=== PATIENT | female | born 1995 | race Caucasian/White ===

== ENCOUNTER 2017-12-17 09:53 | Day surgery (SDC) | payer MEDICAID, SELFPAY ==
[2017-12-17 10:15] VITALS: BP 117/64; PULSE 84; RESP 16; TEMP 36.8; O2SAT 98; BMI 27.4
--- NOTE | 2017-12-17 11:30 | POC_PTH ---
PATIENT: TAYLER CHO [place] [facility] [id number] AGE/SX: 22/F ROOM: RE12/17/[address]: Dr. Noé Roberts MD : 1995 BED: DIS: 12/17/2017 SPEC #: [id number] RECD: 12/17/17 15:40 STATUS: HUI PINKY #: [id number] KEYA: 12/17/17 11:[address]: Noé Roberts DEPT: SURGICAL PATHOLOGY RECD BY: Alisha Woodson ENTERED: 12/18/17 09:45 SP TYPE: PROD CONC OTHR DR: No Primary Care Phys Tissues: Product of conception, NOS Procedures: Surgery Specimen Level IV HEADER OPERATION: Dilation and curettage, suction PRE-OP DIAGNOSIS: Intrauterine demise TISSUE SUBMITTED: Products of conception MICROSCOPIC DIAGNOSIS Products of conception: Decidua and immature chorionic villi (products of conception). SJ:arlette 3/5/18 MICROSCOPIC DESCRIPTION Slides are reviewed. GROSS DESCRIPTION Received in fixative is one container labeled with the patient's name and designated products of conception. The specimen consists of multiple fragments of pink hemorrhagic soft tissue that in aggregate measure 8 x 7 x 3 cm. No tissue is identified. Wire Photo Operator News tissue is submitted in two cassettes. / SJ:arlette 12/18/17 TC:5 CPT: 93303
--- NOTE | 2017-12-17 12:25 | PCM.DC.D&C ---
Discharge Diet: No Restrictions Discharge Activity: Return to Normal Activity - after 24 hours, May Shower May resume sexual activity in: 2 weeks Weight Bearing Status: Weight bearing as tolerated Call your doctor if you observe: Fever of 101 or Higher, Coldness, Increased Pain, Numbness or Tingling, Change in Color, Inability to urinate, Inability to have a bowel movement, Using more than one pad per hour, Shortness of breath, Fainting spells, Chest pain, Prolonged hiccoughing, Calf discomfort Allergies/Adverse Reactions: Allergies Penicillins Allergy (Verified 12/16/17 13:46) Rash rash n/v Medications to take at Discharge vitamin,calcium,duqmozdz-pvnf-rrgnf acid tablet 1 tab PO QDAY 11/30/17 Primary Care Physician: Care Physician,No Primary [Primary Care Provider] -
--- NOTE | 2017-12-17 12:29 | PCM.OPRPT ---
Report of Operation Date of Procedure: 12/17/17 Pre-Operative Diagnosis: Missed at 9 weeks Post-Operative Diagnosis: Same Surgery/Procedure Performed:: Suction D&C Description of Surgical Findings:: 9 week size uterus Type of Anesthesia:: MAC Specimen's removed: POC's Estimated Blood Loss (mL): 50ml Fluids Replaced: 1,000ml Description of Procedure: Patient taken to OR where MAC anesthesia placed. Patient put in dorsal lithotomy position. She was prepped & draped. Cervix grasped with single toothed tenaculum and gently dilated. #9 suction curette introduced for return of POC's. #2 sharp curette used gently. Repeat suction curettage performed. TAUS showed additional POC's. Repeat sharp & suction curettage performed. Repeat TAUS performed. At end of procedure all instruments removed from vaginal cavity. Patient tolerated procedure well. - Complications None
[2017-12-17 13:11] VITALS: BP 111/86; BP 117/64; PULSE 86; RESP 18; TEMP 36.6; O2SAT 96
[2017-12-17 13:15] VITALS: BP 114/99; BP 117/64; PULSE 87; RESP 16
[2017-12-17 13:20] VITALS: BP 101/61; BP 117/64; PULSE 75; RESP 18; O2SAT 100
[2017-12-17 13:25] VITALS: BP 101/61; BP 117/64; PULSE 74; RESP 18; TEMP 36.6; O2SAT 100
[2017-12-17] MEDS: Doxycycline 100 MG CAPSULE 200 MG PO (13:55)
[2017-12-17 14:15] VITALS: BP 117/64
== END 2017-12-17 14:23 | disposition home or self-care (01) ==
LOC: SDC 09:54 → AC 09:55
PROVIDERS: Visit Provider Obstetrics & Gynecology
PROC: (CPT 59820; principal; 2017-12-17 11:15)
DX: O02.1 Missed abortion (principal); Z87.891 Personal history of nicotine dependence
CPT/HCPCS: 59820; 88305; J7120

== ENCOUNTER 2019-04-05 15:26 | Outpatient (RCR) | payer MEDICAID, SELFPAY | END 2019-04-05 23:59 | disposition home or self-care (01) | LOC: DC 15:26 | PROVIDERS: Visit Provider Obstetrics & Gynecology | DX: O24.419 Gestational diabetes mellitus in pregnancy, unspecified control (principal) | CPT/HCPCS: 97802 ==

== ENCOUNTER 2019-05-24 17:25 | Outpatient (CLI) | payer MEDICAID, SELFPAY ==
[2019-05-24 18:20] VITALS: BMI 36.2
[2019-05-24 18:58] LABS: AST(SGOT) 15 U/L (15-37); Alanine Aminotransfer ALT/SGPT 12 U/L (13-56); Albumin, Serum 2.6 g/dL (3.2-5.0); Alkaline Phosphatase 163 U/L (45-117); Bilirubin, Direct 0.08 mg/dL (0.00-0.30); Globulin 4.5 g/dL (2.2-4.2); Protein, Total 7.1 g/dL (6.4-8.2)
--- NOTE | 2019-05-27 07:54 | OB.TRI.NOTE ---
History of Present Illness Reason For Visit: ITCHING Date of Service: 05/24/19 Final ALEXANDR: 06/03/19 Final ALEXANDR Source: US <20 weeks Gestational age: 39 Weeks and 0 Days Allergies Penicillins Allergy (Verified 05/27/19 05:29) Rash rash n/v as a child - Pertinent Past Medical History Medical History: Past Medical History (Last Updated 11/30/17 @ 15:02 by Caro Watters) Surgical History: Past Surgical History (Last Updated 11/30/17 @ 15:02 by Caro Watters) Hx of section Laboratory Studies: Laboratory Tests 05/24/19 Range/Units 18:05 Total Bilirubin 0.30 (0.20-1.00) mg/dL Direct Bilirubin 0.08 (0.00-0.30) mg/dL AST 15 (15-37) U/L ALT 12 L (13-56) U/L Alkaline Phosphatase 163 H (45-117) U/L Total Protein 7.1 (6.4-8.2) g/dL Albumin 2.6 L (3.2-5.0) g/dL Globulin 4.5 H (2.2-4.2) g/dL Impression/Plan NST for itching in Evaluation done by Debi Day CNM
== END 2019-05-24 19:30 | disposition home or self-care (01) ==
LOC: WPOUT 17:34 → WP 17:34
PROVIDERS: Referring Provider Obstetrics & Gynecology; Visit Provider Obstetrics & Gynecology
DX: O26.893 Other specified pregnancy related conditions, third trimester (principal); L29.9 Pruritus, unspecified; Z3A.39 39 weeks gestation of pregnancy
CPT/HCPCS: 36415; 59025; 59050; 80076; 99218; G0378

== ENCOUNTER 2019-05-27 04:45 | Inpatient (IN) | payer MEDICAID, SELFPAY ==
--- NOTE | 2019-05-24 23:12 | OB.TRI.PN ---
Progress Notes Date of Service: 05/24/19 Progress Note: Presented to L&D with complaint of itching all over her body. Denies any other complaints. No VB,LOF,or contractions. Was seen in the office today and told she had some itching but once she got home realized she was still itching. O: Heart:RRR Lungs: CTA bilaterally Abd: soft, non tender, no RUQ pain 145, moderate variability, accels, no decels, reactive A:Itching P: 1) No change in symptoms upon presentation. Itching mild and not on hands or soles of feet. 2) LFTs normal 3) Benadryl 25mg PO once. Patient declines because she has to drive home but will take once she arrives 4) To call office tomorrow to update on symptoms 5) consulted and agrees with plan.
[2019-05-27] VITALS (21 sets, daily range): BP systolic 106–126; BP diastolic 47–78; PULSE 65–103; RESP 12–20; TEMP 36.1–36.9; O2SAT 95–100; BMI 35.8
[2019-05-27] MEDS: Lactated Ringers 1,000 ML 999 ML IV (05:21)
[2019-05-27 05:33] LABS: Absolute Lymphocyte Count 3.03 X10^3/uL (0.83-4.51); Absolute Neutrophil Count 5.2 X10^3/uL (2.0-7.7); Basophil# 0.02 X10^3/uL; Basophil% 0.2 % (0-1); Eosinophil# 0.11 X10^3/uL; Eosinophils% 1.2 % (0-5); Hematocrit 35.1 % (37-47); Hemoglobin 11.6 g/dL (12.0-15.0); Lymphocyte # 3.03 X10^3/ul (4.0); Lymphocyte % 33.1 % (19-41); Mean Corpuscular Hgb 29.4 pg (27.0-32.0); Mean Corpuscular Volume 88.9 fL (81-99); Mean Platelet Vol. 11.8 fl (6.2-12.0); Monocyte# 0.76 X10^3/uL; Monocyte% 8.3 % (0-10); NRBC Flagged by Analyzer 0 % (0-5); Neutrophil # 5.17 X10^3/uL (2.7-7.7); Neutrophil % 56.5 % (47-70); Platelet Count 192 K/mm3 (150-450); RBC Distribution Width CV 13.1 % (11.6-14.6); RBC Distribution Width SD 42.4 fl (35.1-43.9); Red Blood Count 3.95 M/mm3 (4.2-5.4); White Blood Count 9.2 K/mm3 (4.4-11.0)
[2019-05-27] MEDS: Lactated Ringers 1,000 ML 150 ML IV (06:20)
[2019-05-27 07:08] LABS: Chlamydia Trachomatis by PCR Negative (Negative); Neisserai gonorrhoeae by PCR Negative (Negative); Probe Check PASS; Sample Adequacy Control PASS; Specimen Processing Control PASS
--- NOTE | 2019-05-27 08:15 | OP.PCM_ITS ---
Report of Operation Date of Procedure: 05/27/19 Pre-Operative Diagnosis: (1) Prior section (2) 39 weeks Post-Operative Diagnosis: Same Description of Surgical Findings:: Normal uterus & adnexa. Some scar tissue of the fascia and bladder near the VERONIKA. operations developer: Coar Willis Type of Anesthesia:: Spinal - Admit VTE Documentation VTE Present on Admission: No VTE Mechan Device Prophylaxis: SCD's Delivery Classification: Scheduled Final ALEXANDR: 06/03/19 Gestational age: 39 Weeks and 0 Days Indications for : Repeat Elective Description of Procedure: Patient taken to OR where spinal anesthesia was placed. She was prepped and draped in normal sterile fashion in a dorsal supine position with a leftward tilt. After ensuring adequacy of anesthesia the Pfannensteil skin incision was made and carried through to the underlying fascia with a bovie. The fascia was incised in the midline and carried laterally with the Squires scissors. The rectus muscles were in the midline and the peritoneum was entered bluntly. The bladder flap was dissected down carefully with the Metzenbaum scissors and blunt dissection. The uterus was incised in a transverse fashion and then incision extended with cephalocaudad traction. The fetus was vertex and the head was brought to the incision in the flexed position. With good fundal pressure the head easily delivered. The head was gently guided to allow delivery of anterior & posterior shoulders. No excess traction placed on head. The body delivered easily. The 3VC cord was clamped and cut after 1 minute delay and the infant handed off to the waiting RN. The placenta was delivered with gentle traction and fundal massage and the uterus was exteriorized and cleared of all clots and debris. The uterine incision was closed with 2 of 1 vicryl suture in a running locked fashion that were overlapped in the midline of the incision. The bovie was used to further obtain further hemostasis of the uterine incision. 2 figure of 8 sutures were used to help obtain excellent hemostasis. The bladder was back filled with 300ml methylene blue dyed normal saline. This confirmed bladder integrity and was done because of the scar tissue involving the bladder to the lower uterine segment. The uterus was returned to the peritoneal cavity. The pelvis was irrigated & then cleared of all clots and debris. The uterine incision was reexamined and found to be hemostatic. Some christopher was placed over the uterine incision due to the denuded areas. The fascia was closed with looped PDS suture in a running standard fashion. The subcutaneous tissue was examined & any bleeding bovie cauterized. The subcutaneous tissue was reapproximated with plain gut suture. The skin was closed in a subcuticular fashion by the BLOOD BANK LABORATORY PROFESSIONAL with me present in the labor and delivery suite. I performed the remainder of the procedure with assistance. Amniotic Membrane Rupture Type: Artificial Amniotic Fluid Description: Clear Placenta Disposition: [facility] Specimen(s) sent to pathology: None Drain: Alford to straight drain Fluids Replaced: 1500ml Cord Entanglement: None Cord Vessel Description: 3 Vessels Esitmated Blood Loss (ml): 800ml Infant Gender: Female - Brittani (1 minute): 8 (5 minute): 9 Delayed cord clamping: Yes Pre-op Antibiotic Given: Ancef 2 grams IV x1 Complications: None - Admit VTE Documentation VTE Present on Admission: No VTE Mechan Device Prophylaxis: SCD's
[2019-05-27] MEDS: Sodium Citrate/Citric Acid 30 ML UDC PO (08:20)
[2019-05-27] MEDS: Cefazolin 2 GM in 0.9% Normal Saline 100 ML IV (08:20)
--- NOTE | 2019-05-27 08:25 | PCM.HP.OB ---
History Date of Admission: 02/16/15 Final ALEXANDR: 06/03/19 Final ALEXANDR Source: US <20 weeks Gestational age: 39 Weeks and 0 Days History of this : This is a 24 year-old, G [], P [], at 39 weeks gestational age. Medical History: Medical History (Last Updated 11/30/17 @ 15:02 by Caro Watters) Z34.90 Surgical History: Surgical History (Last Updated 11/30/17 @ 15:02 by Caro Watters) Hx of section Z98.891 Allergies Penicillins Allergy (Verified 05/27/19 05:29) Rash rash n/v as a child Smoking Status: Former smoker History Past Pregnancies: Past Pregnancies Delivery Date Name GA/Weeks Outcome Route Weight Infant Gender Labor Length Anesthesia Delivery Location Provider FOB Assessment/Plan All Active Problems (Last Updated 11/30/17 @ 15:02 by Caro Watters) URI (upper respiratory infection) (Acute) This is a 24 year-old, G [], P [], at 39 weeks gestational age. Admit for repeat Please see CF H&P - no updates
[2019-05-27] MEDS: Ketorolac 30 MG/ML Syringe IV ×3 (09:46→21:55)
[2019-05-27] MEDS: Lactated Ringers 1,000 ML 100 ML IV ×2 (10:10→16:22)
[2019-05-27] MEDS: Oxytocin 30 units/NS 500 ml 30 UNITS/500 ML IV.SOLN 167 UNITS IV (10:57)
[2019-05-27] MEDS: 0.9% Saline Lock 10 ML Syringe IV (16:23)
[2019-05-28] VITALS (9 sets, daily range): BP systolic 104–124; BP diastolic 71–78; PULSE 78–110; RESP 16–18; TEMP 36.3–36.6; O2SAT 95–100
--- NOTE | 2019-05-28 01:20 | NURSING ---
pt calls rn to room. She states the baby was spitting up and FOB moved crib really fast and snagged the ly bag on the crib and riipped a hole in it. ly removed. mother with great urine output. about 400 on floor and 100 in the bag.
[2019-05-28] MEDS: 0.9% Saline Lock 10 ML Syringe IV ×4 (04:20→22:42)
[2019-05-28] MEDS: Ketorolac 30 MG/ML Syringe IV ×4 (04:20→22:42)
[2019-05-28 06:12] LABS: Hematocrit 33.4 % (37-47); Mean Corp Hgb Conc 32.9 g/dL (32-36); Mean Corpuscular Hgb 29.6 pg (27.0-32.0); Mean Corpuscular Volume 89.8 fL (81-99); Mean Platelet Vol. 11.6 fl (6.2-12.0); Platelet Count 170 K/mm3 (150-450); RBC Distribution Width CV 13.2 % (11.6-14.6); RBC Distribution Width SD 42.8 fl (35.1-43.9); Red Blood Count 3.72 M/mm3 (4.2-5.4); White Blood Count 19.9 K/mm3 (4.4-11.0)
--- NOTE | 2019-05-28 12:10 | PCM.PN.OB ---
Subjective: Doing well per patient and nursing staff. Ambulating and taking PO. Alford out and voiding. Passing flatus. without difficulty. Denies any shortness of breath, shortness of breath, or leg pain. Pain controlled. - Physical Exam General: Alert, Cooperative HEENT: Atraumatic, Normocephalic Neck: Trachea Midline Lungs: Clear to auscultation, Normal air movement, No rhonchi, No wheeze Cardiovascular: Regular rate, Regular Rhythm, No murmurs Abdomen: Bowel Sounds Present, Soft Extremities: No edema - Yanique's negative bilaterally Psych/Mental Status: Normal Affect, Appropriate Vital Signs Temp Pulse Resp BP Pulse Ox 97.8 F 90 18 113/71 97 05/28/19 08:00 05/28/19 08:00 05/28/19 08:00 05/28/19 08:00 05/28/19 08:00 Oxygen Delivery Method Room Air Weight: 195 lb 15.855 oz Body Mass Index (BMI) 35.8 Intake and Output for Last 24 Hours 05/26/19 05/27/19 05/28/19 23:59 23:59 23:59 Intake Total 3943 / 3943 1000 / 1000 Output Total 1550 / 1550 1100 / 1100 Balance 2393 / 2393 -100 / -100 Laboratory Tests Past 24 Hrs 05/28/19 05:50 WBC 19.9 H RBC 3.72 L Hgb 11.0 L Hct 33.4 L MCV 89.8 MCH 29.6 MCHC 32.9 RDW Std Deviation 42.8 RDW Coeff of Yevgeniy 13.2 Plt Count 170 MPV 11.6 Medical Necessity - Tobacco Use Smoking Status: Former smoker Assessment/Plan All Active Problems (Last Updated 11/30/17 @ 15:02 by Caro Watters) URI (upper respiratory infection) (Acute) A:POD #1 Repeat Section P: 1) Routine post op care. 2) Hgb/Hct stable. WBC increased to 19,000, afebrile and no signs of infection at this time. Repeat in am. 3) Pain management 4) Planning D/C home tomorrow
[2019-05-29 02:30] VITALS: BP 112/70; PULSE 70; RESP 16; TEMP 36.6; O2SAT 96
[2019-05-29] MEDS: 0.9% Saline Lock 10 ML Syringe IV (04:25)
[2019-05-29] MEDS: Ketorolac 30 MG/ML Syringe IV (04:25)
[2019-05-29 07:26] LABS: Absolute Lymphocyte Count 2.63 X10^3/uL (0.83-4.51); Absolute Neutrophil Count 10.6 X10^3/uL (2.0-7.7); Basophil# 0.03 X10^3/uL; Basophil% 0.2 % (0-1); Eosinophil# 0.19 X10^3/uL; Eosinophils% 1.3 % (0-5); Hematocrit 32.6 % (37-47); Hemoglobin 10.6 g/dL (12.0-15.0); Lymphocyte # 2.63 X10^3/ul (4.0); Lymphocyte % 18.1 % (19-41); Mean Corp Hgb Conc 32.5 g/dL (32-36); Mean Corpuscular Hgb 29.4 pg (27.0-32.0); Mean Corpuscular Volume 90.3 fL (81-99); Mean Platelet Vol. 11.4 fl (6.2-12.0); Monocyte# 1.03 X10^3/uL; Monocyte% 7.1 % (0-10); NRBC Flagged by Analyzer 0 % (0-5); Neutrophil # 10.59 X10^3/uL (2.7-7.7); Neutrophil % 72.8 % (47-70); Platelet Count 191 K/mm3 (150-450); RBC Distribution Width CV 13.6 % (11.6-14.6); RBC Distribution Width SD 44.8 fl (35.1-43.9); Red Blood Count 3.61 M/mm3 (4.2-5.4); White Blood Count 14.5 K/mm3 (4.4-11.0)
--- NOTE | 2019-05-29 10:17 | DCINST_ITS ---
Discharge Diet: No Restrictions Discharge Activity: Return to Normal Activity, May not drive while taking narcotic pain medications., May Shower May resume sexual activity in: 4-6 weeks Lifting Restrictions: 20 pounds Additional Activity Instructions:: Nothing in the vagina for 4-6 weeks. You may return to work/school in 6 weeks. Call your doctor if your incision/area has: Continuous Slow Oozing, Sudden Increased Bleeding, Increased Pain/ Swelling, Increased Redness, Foul Smelling Discharge Call your doctor if you observe: Fever of 101 or Higher, Inability to urinate, Inability to have a bowel movement, Using more than one pad per hour, Chest pain, Increased palpitations (irregular heartbeat), Calf discomfort, Uncontrolled pain Suture Line Care: Avoid Pulling/Pushing, Avoid Pinching/Bending Cleanse incision/area with: Keep Dressing Clean & Dry - remove dressing after 7 days Instructions: After a Additional Instructions: If you experience any of the following, contact your healthcare provider. * Bleeding that soaks a pad every hour for 2 hours * Fever 100.4 or higher * Unrelieved incision or abdominal pain * Swelling, redness, discharge or bleeding from your incision or episiotomy site * Your incision begins to separate * Problems urinating (including inability to urinate or burning while urinating). * Visual changes * Severe headache * Flu-like symptoms * Pain or redness in one of both of your breasts * Pain, warmth, tenderness or swelling in your legs, especially the calf area * Frequent nausea and vomiting * Symptoms of depression or anxiety If you experience any of the following, call 911 or go to the nearest Emergency Room. * Chest pain * Problems breathing * Seizure activity * Partial or complete paralysis of a body part, slurred speech, weakness or drooping of the face, or a sudden inability to walk or hold your balance Allergies/Adverse Reactions: Allergies Penicillins Allergy (Verified 05/27/19 05:29) Rash rash n/v as a child Medications to take at Discharge Oxycodone HCl/Acetaminophen [Percocet 5/325] 1 - 2 tab PO Q4H PRN PRN 7 Days #20 tab 05/29/19 The following prescriptions were given: Oxycodone HCl/Acetaminophen [Percocet 5/325] 1 - 2 tab PO Q4H PRN PRN 7 Days #20 tab PRN Reason: Pain Prescription Printed Follow-Up: Call to make an appointment with your doctor for an incision check in 1-2 weeks. You will also need a 6 week post- follow up appointment. Test results from this visit will be discussed in further detail at your follow- up appointment, if applicable. Please Follow Up With: Barb Dugan MD Primary Care Physician: Care Physician,No Primary [Primary Care Provider] -
--- NOTE | 2019-05-29 10:17 | PCM.PN.OB ---
Subjective: Doing well per patient and nursing staff. Ambulating and taking PO without difficulty. Voiding and passing flatus. Wearing abdominal support binder. Pain controlled. Lochia normal. without difficulty. Planning D/C home today. - Physical Exam General: Alert, Oriented x3, Cooperative HEENT: Atraumatic, Normocephalic Neck: Trachea Midline Lungs: Clear to auscultation, Normal air movement, No rhonchi, No wheeze Cardiovascular: Regular rate, Regular Rhythm, No murmurs Abdomen: Bowel Sounds Present, Soft Extremities: No edema Psych/Mental Status: Normal Affect, Appropriate Vital Signs Temp Pulse Resp BP Pulse Ox 97.9 F 70 16 112/70 96 05/29/19 02:30 05/29/19 02:30 05/29/19 02:30 05/29/19 02:30 05/29/19 02:30 Oxygen Delivery Method Room Air Weight: 195 lb 15.855 oz Body Mass Index (BMI) 35.8 Intake and Output for Last 24 Hours 05/27/19 05/28/19 05/29/19 23:59 23:59 23:59 Intake Total 3943 / 3943 1000 / 1000 Output Total 1550 / 1550 1100 / 1100 Balance 2393 / 2393 -100 / -100 Laboratory Tests Past 24 Hrs 05/29/19 07:10 WBC 14.5 H RBC 3.61 L Hgb 10.6 L Hct 32.6 L MCV 90.3 MCH 29.4 MCHC 32.5 RDW Std Deviation 44.8 H RDW Coeff of Yevgeniy 13.6 Plt Count 191 MPV 11.4 Immature Gran % (Auto) 0.500 Neut % (Auto) 72.8 H Lymph % (Auto) 18.1 L Letcher % (Auto) 7.1 Eos % (Auto) 1.3 Baso % (Auto) 0.2 Absolute Neuts (auto) 10.6 H Absolute Lymphs (auto) 2.63 Nucleated RBC % 0 Medical Necessity - Tobacco Use Smoking Status: Former smoker Assessment/Plan All Active Problems (Last Updated 11/30/17 @ 15:02 by Caro Watters) URI (upper respiratory infection) (Acute) A:POD #2 s/p repeat section P: 1) Routine discharge instructions for post op care given. 2) Remove dressing after 7 days 3) Rx for Percocet PRN for pain 4) Follow up in 2 weeks and 6 weeks
--- NOTE | 2019-05-29 10:20 | PCM.DC.SUM ---
Discharge Date and Diagnosis Date of Admission: 02/16/15 Date of Discharge: 05/29/19 - Primary Discharge Diagnosis Repeat Section Hospital Course and Treatment Summary of Care Provided: The patient is a 24 year old F [at 39 weeks presented for repeat section. Uncomplicated hospital course. Discharge home on post op day #2.] - Physical Exam Vital Signs Temp Pulse Resp BP Pulse Ox 97.9 F 70 16 112/70 96 05/29/19 02:30 05/29/19 02:30 05/29/19 02:30 05/29/19 02:30 05/29/19 02:30 Oxygen Delivery Method Room Air Weight: 195 lb 15.855 oz Body Mass Index (BMI) 35.8 Intake and Output for Last 24 Hours 05/27/19 05/28/19 05/29/19 23:59 23:59 23:59 Intake Total 3943 / 3943 1000 / 1000 Output Total 1550 / 1550 1100 / 1100 Balance 2393 / 2393 -100 / -100 Laboratory Tests Past 24 Hrs 05/29/19 07:10 WBC 14.5 H RBC 3.61 L Hgb 10.6 L Hct 32.6 L MCV 90.3 MCH 29.4 MCHC 32.5 RDW Std Deviation 44.8 H RDW Coeff of Yevgeniy 13.6 Plt Count 191 MPV 11.4 Immature Gran % (Auto) 0.500 Neut % (Auto) 72.8 H Lymph % (Auto) 18.1 L [place] % (Auto) 7.1 Eos % (Auto) 1.3 Baso % (Auto) 0.2 Absolute Neuts (auto) 10.6 H Absolute Lymphs (auto) 2.63 Nucleated RBC % 0 Discharge Diet: No Restrictions Discharge Activity: Return to Normal Activity, May not drive while taking narcotic pain medications., May Shower May resume sexual activity in: 4-6 weeks Additional Activity Instructions:: Nothing in the vagina for 4-6 weeks. You may return to work/school in 6 weeks. Call your doctor if your incision/area has: Continuous Slow Oozing, Sudden Increased Bleeding, Increased Pain/ Swelling, Increased Redness, Foul Smelling Discharge Call your doctor if you observe: Fever of 101 or Higher, Inability to urinate, Inability to have a bowel movement, Using more than one pad per hour, Chest pain, Increased palpitations (irregular heartbeat), Calf discomfort, Uncontrolled pain Suture Line Care: Avoid Pulling/Pushing, Avoid Pinching/Bending Cleanse incision/area with: Keep Dressing Clean & Dry - remove dressing after 7 days Home Medications: Medications to take at Discharge Oxycodone HCl/Acetaminophen [Percocet 5/325] 1 - 2 tab PO Q4H PRN PRN 7 Days #20 tab 05/29/19 Following Prescrptions Were Given to Patient: Oxycodone HCl/Acetaminophen [Percocet 5/325] 1 - 2 tab PO Q4H PRN PRN 7 Days #20 tab PRN Reason: Pain Prescription Printed Primary Care Physician: Care Physician,No Primary [Primary Care Provider] - Please Follow Up With: Barb Dugan MD Patient Instructions: After a Medical Necessity - Tobacco Use Smoking Status: Former smoker Meaningful Use Info Meaningful Use Diagnoses (Choose all that apply): None applicable
--- NOTE | 2019-06-02 18:24 | NURSING ---
No answer on follow up phone call and no voicemail
== END 2019-05-29 11:30 | disposition home or self-care (01) | DRG 540 ==
PROVIDERS: Advanced Practice Midwife; Admitting Provider Obstetrics & Gynecology; Referring Provider Obstetrics & Gynecology; Visit Provider Obstetrics & Gynecology
PROC: 10D00Z1 Extraction of Products of Conception, Low, Open Approach (ICD-10-PCS; CPT 59514; principal; 2019-05-27 07:15)
DX: O65.5 Obstructed labor due to abnormality of maternal pelvic organs (principal); O34.211 Maternal care for low transverse scar from previous cesarean delivery; O26.893 Other specified pregnancy related conditions, third trimester; L29.9 Pruritus, unspecified; Z3A.39 39 weeks gestation of pregnancy; Z37.0 Single live birth; Z87.891 Personal history of nicotine dependence
CPT/HCPCS: 36415; 59025; 59050; 80076; 85025; 85027; 86850; 86900; 87491; 87591; 99218; J7120; A4216; G0378; Q9968

== ENCOUNTER 2020-01-14 16:45 | Emergency (ER) | payer MEDICAID, SELFPAY ==
[2019-05-27 05:31] VITALS: BMI 35.8
[2020-01-14 16:46] VITALS: BP 136/92; PULSE 88; RESP 16; TEMP 36.2; O2SAT 98; BMI 30.4
--- NOTE | 2020-01-14 17:16 | RAD_ITS ---
STUDY: X-RAY CHEST REASON FOR EXAM: Female, 25 years old. SOB x 1 week TECHNIQUE: Single AP portable view of the chest. COMPARISON: None. FINDINGS: The lungs are clear and expanded. There is no demonstrated pleural abnormality. Normal size heart. Normal mediastinum and angely. Normal visualized pulmonary arteries. Normal visualized aortic arch and descending thoracic aorta. Normal visualized thoracic spine. Normal visualized ribs, clavicles, and shoulders. There is no demonstrated abnormality of the visualized soft tissue structures of the upper abdomen. RAD/Chest 1 View (Portable) IMPRESSION: Normal x-ray examination of the chest. Electronically Signed: Dmitriy Drummond MD at 17:43 EDT , Service support ,
--- NOTE | 2020-01-14 17:17 | ED.DCSUM_ITS ---
- ER Visit Summary Date of Service: 01/14/20 Chief Complaint: Shortness of breath History of Present Illness: The patient is a 25 F has medical history of anxiety. Never had a DVT or PE. No cardiac history. She denies any cough or fever. But he states for the last few days she has been intermittently short of breath. She denies any nausea or vomiting. Mild diarrhea. No fever. No leg pain or swelling. No recent travel, surgery or immobilization. No hemoptysis. No chest pain. No family history of blood clots. Physical Examination: Well-appearing young female. Vital signs are stable afebrile. Pulse ox 98% on room air no signs hypoxia. Respiratory rate 16 no distress. H EENT exam unremarkable. Neck nontender no JVD. No lymphadenopathy. Lungs clear to auscultation bilaterally. Heart regular rate and rhythm no murmur rate about 90. The abdomen is soft nontender normal bowel sounds no peritoneal signs. Extremities moves all 4. Calves are nontender without edema or cords. Back nontender. Lungs posteriorly are clear. Neurologically she is awake alert no focal motor deficits. Equal symmetrical radial pulses. Test Results: Portable 1 view chest x-ray read by myself shows no acute abnormality. Normal cardiac silhouette mediastinum. No infiltrate. No failure. No fluids. Emergency Department Course and Treatment: Patient with subjective dyspnea. Has a completely normal exam. Lungs are clear. Heart regular rhythm no murmur. No risk for DVT or PE and legs are nontender and nonswollen. Treatment Plan: Follow-up with primary care physician if not improving. Return if worse. Disposition: Discharge Impression: Acute subjective dyspnea uncertain etiology History of anxiety This note was generated with [employer] dictation software. It may contain incorrect words, spelling, and punctuation that were not noted in review of the chart prior to signing ED Disposition - Plan for ED Patient: Referrals: Bright Barksdale NP-C [Primary Care Provider] -
--- NOTE | 2020-01-14 17:26 | ED.DEP ---
ED Disposition - Plan for ED Patient: Disposition: Home or Assisted Living Instructions: ED Dyspnea Referrals: Bright Barksdale, RED-C [Primary Care Provider] - 3-5 Days if not improving Additional Instructions: Your chest x-ray is normal today. If your sensation of feeling short of breath does not improve follow-up with your doctor. Today your vital signs were normal as well as your oxygen. As well as your exam.
== END 2020-01-14 17:56 | disposition home or self-care (01) ==
PROVIDERS: Emergency Provider Emergency Medicine; PCP Nurse Practitioner Family
DX: R06.00 Dyspnea, unspecified (principal); F41.9 Anxiety disorder, unspecified
CPT/HCPCS: 71045; 99282

== ENCOUNTER → 2020-06-06 09:36 | Outpatient (CLI) | payer MEDICAID, SELFPAY ==
[2020-06-06 09:08] VITALS: BMI 30.4
[2020-06-06 10:25] LABS: hCG Titer Quant., Serum 76 mIU/mL (1-3)
== END ==
PROVIDERS: Referring Provider Obstetrics & Gynecology; Visit Provider Obstetrics & Gynecology
DX: O20.0 Threatened abortion (principal); Z3A.00 Weeks of gestation of pregnancy not specified
CPT/HCPCS: 36415; 84702

== ENCOUNTER → 2020-06-08 08:57 | Outpatient (CLI) | payer MEDICAID, SELFPAY ==
[2020-06-06 09:08] VITALS: BMI 30.4
[2020-06-08 10:18] LABS: hCG Titer Quant., Serum 177 mIU/mL (1-3)
== END ==
PROVIDERS: Referring Provider Obstetrics & Gynecology; Visit Provider Obstetrics & Gynecology
DX: O20.0 Threatened abortion (principal); Z3A.00 Weeks of gestation of pregnancy not specified
CPT/HCPCS: 36415; 84702

== ENCOUNTER → 2020-06-11 13:30 | Outpatient (CLI) | payer MEDICAID, SELFPAY ==
[2020-06-06 09:08] VITALS: BMI 30.4
--- NOTE | 2020-06-11 13:33 | US_ITS ---
STUDY: FIRST TRIMESTER OBSTETRICAL ULTRASOUND REASON FOR EXAM: Female, 25 years old viability LMP: 05/02/2020. TECHNIQUE: Transabdominal and Transvaginal TECHNICAL QUALITY: Adequate. PRIOR ULTRASOUND: None. FINDINGS: There is visualization of a single gestational sac in a normal intrauterine position. The mean sac diameter (MSD) measures 3.2 mm, indicating an estimated gestational age (EGA) of 4 weeks, 5 days. The gestational sac shape is within normal limits. There is no demonstrated yolk sac. The placenta is non-visualized. There is no demonstrated embryo ( pole). The estimated gestation age (EGA) by LMP is 5 weeks, 5 days. The estimated date of delivery (ALEXANDR) by LMP is 02/06/2021. The estimated gestation age (EGA) by US is 4 weeks, 5 days. The estimated date of delivery (ALEXANDR) by US is 02/13/2021. The uterus measures 9.1 cm x 5.5 cm x 5.5 cm. There is a 2.1 cm x 2.4 cm x 2 cm fibroid. The cervix is closed. The right ovary measures 3.8 cm x 3.5 cm x 1.1 cm. There is no right ovarian cyst. There is no visualized right adnexal mass or complex lesion. The left ovary measures 3.6 cm x 3.2 cm x 2.4 cm. There is no left ovarian cyst. There is no visualized left adnexal mass or complex lesion. There is no fluid in the cul de sac. US/Init OB < 14Wks US IMPRESSION: Tiny gestational sac is seen within the endometrium. A trace amount of fluid is seen adjacent to the sac. Small uterine fibroid. Electronically Signed: Julio C Jean, at 15:43 EDT , Service support ,
== END ==
PROVIDERS: Referring Provider Obstetrics & Gynecology; Visit Provider Obstetrics & Gynecology
DX: O20.0 Threatened abortion (principal); Z3A.00 Weeks of gestation of pregnancy not specified
CPT/HCPCS: 76801

== ENCOUNTER → 2020-06-26 08:47 | Outpatient (CLI) | payer MEDICAID, SELFPAY ==
[2020-06-06 09:08] VITALS: BMI 30.4
--- NOTE | 2020-06-26 08:47 | US_ITS ---
STUDY: FIRST TRIMESTER OBSTETRICAL ULTRASOUND REASON FOR EXAM: Female, 25 years old WELL BEING -- DATING -- PREVIOUS SCAN 06/11/20 LMP: 05/02/2020. TECHNIQUE: Transvaginal TECHNICAL QUALITY: Adequate. PRIOR ULTRASOUND: Comparison is made with prior examination dated 06/11/2020. FINDINGS: There is visualization of a single gestational sac in a normal intrauterine position. The mean sac diameter (MSD) measures 2.6 cm, indicating an estimated gestational age (EGA) of 7 weeks, 5 days. The gestational sac shape is within normal limits. There is a visualized yolk sac. The yolk sac measures 3.6 mm. The placenta is non-visualized. There is visualization of a live embryo. The crown-rump length (CRL) measures 8.2 mm, indicating an estimated gestational age (EGA) of 6 weeks, 6 days. There is demonstrated cardiac activity with a heart rate of 131 bpm. The estimated gestation age (EGA) by LMP is 7 weeks, 6 days. The estimated date of delivery (ALEXANDR) by LMP is 02/07/2020. The estimated gestation age (EGA) by US is 7 weeks, 2 days. The estimated date of delivery (ALEXANDR) by US is 02/11/2020. The uterus measures 10.9 cm x 6.6 cm x 5.8 cm. There is a 3 cm x 2.8 cm x 1.8 cm fibroid. The cervix is closed. The right ovary measures 2.2 cm x 2.6 cm x 1.5 cm. There is no right ovarian cyst. There is no visualized right adnexal mass or complex lesion. The left ovary measures 2.9 cm x 3.4 cm x 2.9 cm. Within it, there is a 1.4 cm x 1.3 cm x 1.3 cm dominant follicle. There is no visualized left adnexal mass or complex lesion. There is no fluid in the cul de sac. US/Init OB < 14Wks US IMPRESSION: Single live intrauterine gestation with a mean gestational age of 7 weeks and 2 days. Dominant follicle in the left ovary. Electronically Signed: Julio C Jean, at 11:16 EDT , Service support ,
== END ==
PROVIDERS: Referring Provider Obstetrics & Gynecology; Visit Provider Obstetrics & Gynecology
DX: O09.90 Supervision of high risk pregnancy, unspecified, unspecified trimester (principal); Z3A.00 Weeks of gestation of pregnancy not specified
CPT/HCPCS: 76801

== ENCOUNTER → 2020-08-21 11:51 | Outpatient (CLI) | payer MEDICAID, SELFPAY ==
[2020-07-19 08:49] VITALS: BMI 30.4
[2020-08-21 13:33] LABS: hCG Titer Quant., Serum 32 mIU/mL (1-3)
== END ==
PROVIDERS: Referring Provider Obstetrics & Gynecology; Visit Provider Obstetrics & Gynecology
DX: O02.1 Missed abortion (principal); Z3A.00 Weeks of gestation of pregnancy not specified
CPT/HCPCS: 36415; 84702

== ENCOUNTER → 2020-08-23 15:56 | Outpatient (CLI) | payer MEDICAID, SELFPAY ==
[2020-07-19 08:49] VITALS: BMI 30.4
[2020-08-23 17:20] LABS: hCG Titer Quant., Serum 22 mIU/mL (1-3)
== END ==
PROVIDERS: Referring Provider Obstetrics & Gynecology; Visit Provider Obstetrics & Gynecology
DX: O02.1 Missed abortion (principal); Z3A.00 Weeks of gestation of pregnancy not specified
CPT/HCPCS: 36415; 84702

== ENCOUNTER → 2020-10-30 10:16 | Outpatient (CLI) | payer MEDICAID, SELFPAY ==
[2020-10-30 09:51] VITALS: BMI 29.9
[2020-10-30 11:24] LABS: hCG Titer Quant., Serum < 1 mIU/mL (1-3)
== END ==
PROVIDERS: Referring Provider Obstetrics & Gynecology; Visit Provider Obstetrics & Gynecology
DX: Z34.90 Encounter for supervision of normal pregnancy, unspecified, unspecified trimester (principal)
CPT/HCPCS: 36415; 84702

== ENCOUNTER → 2020-11-15 15:52 | Outpatient (CLI) | payer MEDICAID, SELFPAY ==
[2020-10-30 09:51] VITALS: BMI 29.9
[2020-11-15 16:38] LABS: hCG Titer Quant., Serum 87 mIU/mL (1-3)
== END ==
PROVIDERS: Referring Provider Obstetrics & Gynecology; Visit Provider Obstetrics & Gynecology
DX: N91.2 Amenorrhea, unspecified (principal)
CPT/HCPCS: 36415; 84702

== ENCOUNTER → 2020-11-20 14:33 | Outpatient (CLI) | payer MEDICAID, SELFPAY ==
[2020-10-30 09:51] VITALS: BMI 29.9
[2020-11-20 15:55] LABS: hCG Titer Quant., Serum 673 mIU/mL (1-3)
== END ==
PROVIDERS: Referring Provider Obstetrics & Gynecology; Visit Provider Obstetrics & Gynecology
DX: N91.2 Amenorrhea, unspecified (principal)
CPT/HCPCS: 36415; 84702

== ENCOUNTER → 2021-05-31 14:14 | Outpatient (CLI) | payer MEDICAID, SELFPAY ==
[2020-10-30 09:51] VITALS: BMI 29.9
[2021-05-31 16:22] LABS: hCG Titer Quant., Serum < 1 mIU/mL (1-3)
== END ==
PROVIDERS: Referring Provider Obstetrics & Gynecology; Visit Provider Obstetrics & Gynecology
DX: N91.2 Amenorrhea, unspecified (principal)
CPT/HCPCS: 36415; 84702

== ENCOUNTER → 2021-07-15 12:57 | Outpatient (CLI) | payer MEDICAID, SELFPAY ==
[2021-07-15 14:01] LABS: hCG Titer Quant., Serum 114 mIU/mL (1-3)
== END ==
PROVIDERS: Referring Provider Obstetrics & Gynecology; Visit Provider Obstetrics & Gynecology
DX: N91.2 Amenorrhea, unspecified (principal)
CPT/HCPCS: 36415; 84702

== ENCOUNTER → 2021-09-11 21:35 | Outpatient (CLI) | payer MEDICAID, SELFPAY ==
[2021-09-11 21:36] LABS: Bacteria 0 SEEN /hpf (None Seen); Mucous, Urine 0 SEEN /hpf (<or=2+); Red Blood Cells-Urine 0 SEEN /hpf (0-5)
[2021-09-11 21:49] LABS: Color, Urine Yellow (Yellow); Glucose, Dipstick Normal (Normal); Ketone-Dipstick Negative (Negative); Leukocyte Esterase-Dipstick Negative /ul (Negative); Nitrite-Dipstick Negative (Negative); Occult Blood-Urine Negative /ul (Negative); Protein-Dipstick Negative (Negative); Urine Bilirubin Dipstick Negative (Negative); Urine Clarity Clear (Clear); Urine Urobilinogen Normal (Normal)
[2021-09-11 22:02] LABS: Squamous Epithelial Cells - UA 5-10 SEEN /hpf (5-10); White Blood Cells 0-5 SEEN /hpf (0-5)
== END ==
PROVIDERS: Visit Provider Physician Assistant
DX: R30.0 Dysuria (principal); R35.89 Other polyuria; M54.50 Low back pain, unspecified
CPT/HCPCS: 81001; 87086; 87088

== ENCOUNTER 2022-03-14 18:45 | Outpatient (CLI) | payer MEDICAID, SELFPAY ==
[2022-03-14 19:01] VITALS: BP 122/79; PULSE 90
[2022-03-14 19:15] VITALS: TEMP 37.4
[2022-03-14 19:26] VITALS: BMI 36.3
[2022-03-14 20:05] VITALS: BP 124/84; PULSE 87
--- NOTE | 2022-03-15 08:44 | OB.TRI.HP_ITS ---
HPI - General HPI Narrative TAYLER CHO, is a 27 F @ 38+ weeks who presents with complaints of contractions- r/0 labor PFSH [facility] Medical History (Updated 03/15/22 @ 08:[address] April Rosenberg MD) Anxiety Urinary tract infection Allergy/AdvReac Type Severity Reaction Status Date / Time Penicillins Allergy Rash Verified 03/14/22 19:27 Surgical History (Updated 03/15/22 @ 08:[address] April Rosenberg MD) H/O dilation and curettage Hx of section Social History Smoking Status: Former smoker alcohol intake: never details: pre- substance use type: does not use caffeine: Yes what type of physical activity do you participate in: walking frequency: 3-4 times per week seatbelt use: always do you feel safe at home: Yes additional social history: significant other- Terrence Wesley Patient works [employer] History 5 Elective abortions 1 Hx Para 2 Spontaneous abortions 1 Hx # Term Pregnancies Ectopic pregnancies Hx # Pregnancies Multiple births # of living children 2 Past Pregnancies Del. Date Name GA/Weeks Outcome Route Bth Weight Gen Labor Lgth Anesthesia Del Locatn Provider FOB Unknown 2014 Ken 40 live - full term 7lbs 9oz M estevan 48 hours spinal [facility] Akilah Michael Unknown 2018 Brittani 39 live - full term 7lbs 6oz Female spinal [facility] Noé Armando Michael Delivery Date: Stuck in canal, delivery IrmaJess Delivery Date: planned delivery Jess Solis NST FHR Rate Baby A Baseline: 130 Variability:: Moderate Accelerations:: 15 x 15 Decelerations:: None NST Reactive:: Yes FHR Category:: Category I Uterine Activity:: irregular 1-6min- palpable mild per nursing Assessment & Plan (1) Uterine contractions: (2) 38 weeks gestation of : (3) Previous delivery affecting : PLAN: @ 38+ weeks, contractions- not in labor 1) cervical exam / 2) FHR Cat1 reactive- dc home, return if worsening contractions- not in labor at this time.
== END 2022-03-14 20:30 | disposition home or self-care (01) ==
LOC: WPOUT 18:52 → WP 18:52
PROVIDERS: Visit Provider Obstetrics & Gynecology
DX: O47.1 False labor at or after 37 completed weeks of gestation (principal); Z87.891 Personal history of nicotine dependence; Z3A.38 38 weeks gestation of pregnancy
CPT/HCPCS: 59025; 59050; 99218; G0378

== ENCOUNTER 2022-03-19 09:25 | Inpatient (IN) | payer MEDICAID, SELFPAY ==
[2022-03-19] VITALS (16 sets, daily range): BP systolic 89–126; BP diastolic 42–84; PULSE 54–94; RESP 12–18; TEMP 35.7–36.4; O2SAT 97–100; BMI 35.3
[2022-03-19] MEDS: Lactated Ringers 1,000 ML 999 ML IV (10:05)
[2022-03-19 10:28] LABS: Absolute Lymphocyte Count 2.66 X10^3/uL (0.83-4.51); Absolute Neutrophil Count 4.7 X10^3/uL (2.0-7.7); Basophil# 0.02 X10^3/uL; Basophil% 0.3 % (0-1); Eosinophil# 0.04 X10^3/uL; Eosinophils% 0.5 % (0-5); Hematocrit 35.1 % (37-47); Hemoglobin 11.5 g/dL (12.0-15.0); Lymphocyte # 2.66 X10^3/ul (0.83-4.51); Lymphocyte % 34.2 % (19-41); Mean Corp Hgb Conc 32.8 g/dL (32-36); Mean Corpuscular Hgb 28.9 pg (27.0-32.0); Mean Corpuscular Volume 88.2 fL (81-99); Mean Platelet Vol. 12.1 fl (6.2-12.0); Monocyte# 0.27 X10^3/uL; Monocyte% 3.5 % (0-10); NRBC Flagged by Analyzer 0 % (0-5); Neutrophil # 4.74 X10^3/uL (2.7-7.7); Platelet Count 169 K/mm3 (150-450); RBC Distribution Width SD 41.7 fl (35.1-43.9); Red Blood Count 3.98 M/mm3 (4.2-5.4); White Blood Count 7.8 K/mm3 (4.4-11.0)
[2022-03-19] MEDS: Lactated Ringers 1,000 ML 150 ML IV (11:01)
--- NOTE | 2022-03-19 11:15 | NURSING ---
Dr. Dugan notified that patient was only able to swallow 1/4 of her pre-op 1000mg of tylenol. Order received for 500mg of liquid tylenol x1.
[2022-03-19] MEDS: Acetaminophen 650 MG/20 ML UDC 500 MG PO (11:36)
--- NOTE | 2022-03-19 12:05 | HP.PCM.OB_ITS ---
HPI - General General Date of Admission: 03/19/22 HPI Narrative TAYLER CHO, is a 27 F who presents for a scheduled repeat section. H/o 2 prior c-sections. PFSH PFSH Medical History (Updated 03/19/22 @ 12:[address] Marisol Vivar, DO) Anxiety Depression Headache MRSA infection depression Superficial varicosities Urinary tract infection Home Medications PNV comb no.58-iron bisgly-FA [] cap PO 03/19/22 [History Last Taken Unknown] Allergy/AdvReac Type Severity Reaction Status Date / Time Penicillins Allergy Rash Verified 03/19/22 10:07 Surgical History (Updated 03/19/22 @ 12:[address] Marisol Vivar, DO) H/O dilation and curettage Hx of section Social History Smoking Status: Never smoker alcohol intake: never details: pre- substance use type: does not use caffeine: Yes what type of physical activity do you participate in: walking frequency: 3-4 times per week seatbelt use: always do you feel safe at home: Yes additional social history: significant other- Terrence Wesley Patient works [employer] History 5 Elective abortions 1 Hx Para 2 Spontaneous abortions 1 Hx # Term Pregnancies Ectopic pregnancies Hx # Pregnancies Multiple births # of living children 2 Past Pregnancies Del. Date Name GA/Weeks Outcome Route Bth Weight Infant Gen Labor Lgth Anesthesia Del Locatn Provider FOB Unknown 2014 Ken 40 live - full term 7lbs 9oz M estevan 48 hours spinal [facility] Akilah Michael Unknown 2018 Brittani 39 live - full term 7lbs 6oz Female spinal [facility] Noé Michael Delivery Date: Stuck in canal, delivery SolisJess Delivery Date: planned delivery Jess Solis Vital Signs Vital Signs Vital Signs: 03/19/22 10:00 Temperature 97.3 F L Temperature Source Temporal Pulse Rate 94 Respiratory Rate 16 Blood Pressure 126/84 H Blood Pressure Mean 98 Blood Pressure Source Monitor Blood Pressure Position Semi-Fowlers Blood Pressure Location Left Arm Pulse Ox 98 Oxygen Delivery Method Room Air Weight Weight: 193 lb Body Mass Index (BMI) 35.3 Labs Labs Labs: Blood Type A POSITIVE Antibody Screen NEGATIVE Hct 35.1 % (37-47) L Hgb 11.5 g/dL (12.0-15.0) L Obstetrics US Rhogam given: No Assessment & Plan (1) 39 weeks gestation of : PLAN: She has a history of 2 prior sections. She desires a repeat with sterilization. Discussed risk, benefits, alternatives to a repeat section with a bilateral salpingectomy, and consent signed. She understands that sterilization is permanent and irreversible, and there is a risk of regret. She is 100% certain that she desires to proceed with sterilization. Routine preoperative care. Ancef preop. Labs on admission. See [facility] records for full H&P. (2) History of delivery: (3) Encounter for sterilization:
[2022-03-19] MEDS: Clindamycin 900 MG/50 ML BAG 75 MG IV (12:23)
[2022-03-19] MEDS: Sodium Citrate/Citric Acid 30 ML UDC PO (12:24)
--- NOTE | 2022-03-19 14:07 | PCM.OPRPT ---
Problems Associated Problem List Diagnoses (1) 39 weeks gestation of : (2) History of delivery: (3) Encounter for sterilization: Report of Operation Date of Procedure: 03/19/22 Pre-Operative Diagnosis: 39 week gestation, history 2 prior sections, single IUP, desires sterilization Post-Operative Diagnosis: As above Surgery/Procedure Performed:: RLTCS via pfannenstiel incision Description of Surgical Findings:: Moderate amount of adhesions. Moderate bladder adhesions to the lower uterine segment. Very thin lower uterine segment. Normal-appearing uterus and bilateral adnexa. Clear fluid. Normal-appearing placenta with a three-vessel cord. Viable male with Apgars of 9 and 9, weighing 8 pounds 6 ounces. Surgeon: Marisol Vivar ampoule filler: Ayan CHEW Type of Anesthesia: Spinal Special Medications: None Specimen's removed: Placenta Drains: Alford Estimated Blood Loss (mL): 400 Fluids Replaced: 1300 Description of Procedure: She was taken to the operating room where spinal anesthesia was adequate. She was prepped and draped in the dorsal position with a leftward tilt. A Pfannenstiel skin incision was made with a scalpel and this was carried down to the underlying layer of fascia. The fascia was incised in midline and extended laterally using Squires scissors. There were dense adhesions upon entry to the fascia. The fascia was then adhered to the rectus muscles. The fascia was dissected off of the rectus muscles using sharp dissection. The rectus muscles were in the midline. The peritoneum was entered sharply with good visualization of the bladder. The peritoneal incision was extended bluntly. A bladder blade was inserted. Moderate adhesions of the bladder were noted to the uterus. A very thin lower uterine segment was noted. Using Metzenbaum scissors a bladder flap was created. A low transverse incision was made on the uterus with a scalpel. This incision was extended bluntly. Membranes were ruptured for clear fluid using an Allis. The infant's head was flexed, and a vigorous viable male infant was delivered without any force or delay through the hysterotomy. The cord was clamped and cut after a slight delay. The infant was handed off to the waiting nursery staff. The placenta was removed with manual extraction. The uterus was cleared of all clot and debris. The uterus was exteriorized. The hysterotomy was closed with 1-0 Vicryl in a running locked fashion. Next the patient confirmed she desired sterilization. The right fallopian tube was followed out using [place] clamps to the fimbriated end. Using the LigaSure device the mesosalpinx was serially clamped, cauterized, and transected until at the level of the cornua. Once at the level of the cornua the tube was clamped, cauterized, and transected. The right fallopian tube was removed and sent to pathology for review. The was performed on the left side to remove the left fallopian tube after following it up to the fimbriated end. The left fallopian tube was sent to pathology for review. Hemostasis was noted. The uterus was placed back into the abdomen. Hemostasis of the adnexa and uterus were noted. Prophylactic Caty was placed over the lower uterine segment and bladder flap. The peritoneum was unable to be reapproximated. The rectus muscles were made hemostatic with the Bovie cautery. The fascia was closed with strata fix in a running fashion. The subcutaneous space was irrigated and made hemostatic with the Bovie cautery. Subcutaneous space was reapproximated with 3-0 Vicryl in a running fashion. Using 4-0 Monocryl the skin was closed in a subcuticular fashion. A dressing was placed. Instrument, sharp, sponge counts were correct x2 the patient was taken to the recovery room in stable condition. The business assistant was present for the entire procedure: Draping the patient, delivery of infant, and closure. Grafts/Implants Used: None Procedure Start Time: 13:17 Procedure Stop Time: 14:10 Complications None Admit VTE Documentation VTE Present on Admission: No VTE Mechan Device Prophylaxis: SCD's
--- NOTE | 2022-03-19 14:35 | NURSING ---
KETAN Mejia aware of patient's BP of 80/43 and 89/43 and that patient feels a little light headed when placed to a semi-fowlers position. Order received for 1 L bolus of LR to be given X1 and states that if BP does not improved to call Dr. Oliveira for further instructions.
[2022-03-19] MEDS: Oxytocin 30 units/NS 500 ml 30 UNITS/500 ML IV.SOLN 167 UNITS IV (14:40)
[2022-03-19] MEDS: Ringers, Lactated 1,000 ML IV.SOLN. 1000 ML IV (14:50)
--- NOTE | 2022-03-19 15:15 | NURSING ---
Warm blankets placed on patient to increase body temperature. Pt states that her temperature normally runs on the lower side and that she does not feel cold. Pt also states that she no longer feels lightheaded since she had the 1L bolus.
[2022-03-19] MEDS: Ketorolac 30 MG/ML Syringe IV ×2 (16:04→22:24)
--- NOTE | 2022-03-19 16:29 | FALS_PTH ---
PATIENT: TAYLER CHO LOC: [facility] U#:[id number] AGE/SX: 27/F ROOM: WP007 RE03/19/[address]: Dr. Marisol Vivar DO : 1995 BED: 1 DIS: 03/20/2022 SPEC #: [id number] RECD: 03/19/22 16:45 STATUS: HUI REDeysi #: [id number] KEYA: 03/19/22 16:[address]: Marisol Vivar DEPT: SURGICAL PATHOLOGY RECD BY: Chey Murphy ENTERED: 03/20/22 10:03 SP TYPE: FALL TUBES OTHR DR: Karina Primary Care Phys Tissues: Fallopian tube Procedures: Surgery Specimen Level II HEADER OPERATION: Tubal ligation PRE-OP DIAGNOSIS: Sterilization TISSUE SUBMITTED: Fallopian tubes, suture in right tube MICROSCOPIC DIAGNOSIS Right fallopian tube, salpingectomy: Complete segment of fallopian tube with no pathologic change. Left fallopian tube, salpingectomy: Complete segment of fallopian tube with no pathologic change. AM:arlette 03/21/2022 MICROSCOPIC DESCRIPTION Slides are reviewed. GROSS DESCRIPTION Received in fixative is one container labeled with the patient's name and designated bilateral fallopian tubes, suture in right fallopian tube. The specimen consists of two fallopian tubes with an average length of 7 cm and has an average diameter of 0.5 cm. Both fallopian tubes have normal fimbriated ends. No mass lesions are identified. Fashion Patternmaker sections are submitted in two cassettes as follows: 1 - right fallopian tube, 2 - left fallopian tube. / AM:arlette 03/20/2022 TC:4 CPT: 11343 x2
[2022-03-19 16:48] LABS: Pathology Specimen OB SEE PATHOLOGY REPORT
[2022-03-19] MEDS: Lactated Ringers 1,000 ML 250 ML IV (18:09)
[2022-03-19] MEDS: Ondansetron 4 MG/2 ML Vial IV (18:53)
[2022-03-19] MEDS: Acetaminophen 650 MG/20 ML UDC PO (19:14)
[2022-03-19] MEDS: 0.9% Saline Lock 10 ML Syringe IV (22:25)
[2022-03-20 01:00] VITALS: BP 96/55; PULSE 56; RESP 16; TEMP 36.4; O2SAT 99
[2022-03-20] MEDS: Acetaminophen 650 MG/20 ML UDC PO ×3 (01:04→13:09)
[2022-03-20] MEDS: Enoxaparin 40 MG/0.4 ML Syringe SC (03:11)
[2022-03-20 03:15] VITALS: BP 114/62; PULSE 69; RESP 14; TEMP 36.2; O2SAT 99
[2022-03-20] MEDS: Ketorolac 30 MG/ML Syringe IV ×2 (04:09→10:32)
[2022-03-20 04:48] LABS: Hemoglobin 11.8 g/dL (12.0-15.0); Mean Corp Hgb Conc 32.8 g/dL (32-36); Mean Corpuscular Hgb 28.9 pg (27.0-32.0); Mean Corpuscular Volume 88.2 fL (81-99); Platelet Count 163 K/mm3 (150-450); RBC Distribution Width SD 41.9 fl (35.1-43.9); Red Blood Count 4.08 M/mm3 (4.2-5.4); White Blood Count 10.4 K/mm3 (4.4-11.0)
--- NOTE | 2022-03-20 08:05 | PCM.PN.OB ---
Subjective Subjective Pt is doing well. Pain is well controlled. She is ambulating and voiding without difficulty. She is tolerating regular diet without nausea or vomiting. She denies lightheadedness, dizziness, chest pain, shortness of breath, leg pain. Lochia is normal. She is breast-feeding without complaints. She desires to go home today. Objective Data Objective Data Vital Signs: Vital Signs Temp Pulse Resp BP Pulse Ox 97.1 F L 69 14 114/62 99 03/20/22 03:15 03/20/22 03:15 03/20/22 03:15 03/20/22 03:15 03/20/22 03:15 Oxygen Delivery Method Room Air Weight: 193 lb Body Mass Index (BMI) 35.3 Intake & Output: Intake and Output for Last 24 Hours 03/18/22 03/19/22 03/20/22 23:59 23:59 23:59 Intake Total 3606.25 / 3606.25 Output Total 1700 / 1700 Balance 1906.25 / 1906.25 Lab / Micro Data Result Diagrams: 03/20/22 04:15 Labs: Laboratory Results - last 24 hr 03/19/22 10:05: WBC 7.8, RBC 3.98 L, Hgb 11.5 L, Hct 35.1 L, MCV 88.2, MCH 28.9, MCHC 32.8, RDW Std Deviation 41.7, RDW Coeff of Yevgeniy 13.0, Plt Count 169, MPV 12.1 H, Immature Gran % (Auto) 0.500, Neut % (Auto) 61.0, Lymph % (Auto) 34.2, [place] % (Auto) 3.5, Eos % (Auto) 0.5, Baso % (Auto) 0.3, Absolute Neuts (auto) 4.7, Absolute Lymphs (auto) 2.66, Nucleated RBC % 0 03/19/22 10:05: Blood Type A POSITIVE, Antibody Screen NEGATIVE 03/20/22 04:15: WBC 10.4, RBC 4.08 L, Hgb 11.8 L, Hct 36.0 L, MCV 88.2, MCH 28.9, MCHC 32.8, RDW Std Deviation 41.9, RDW Coeff of Yevgeniy 13.0, Plt Count 163, MPV 12.0 Micro: Microbiology 03/19/22 10:15 Nasal Secretion SARS-CoV-2 Antigen (Rapid) - Final Physical Exam Const alert and no apparent distress General Appearance: comfortable HEENT normocephalic Resp normal respiratory effort GI soft to palpation and non-distended GI Narrative: ATTP, dressing c/d/i Extremity no calf tenderness Assessment & Plan (1) Delivery by section: COMMENT: POD#1 s/p RLTCS BS PLAN: Pt is postoperative day 1 from a scheduled repeat section and bilateral salpingectomy. She is doing well and desires discharge. Hemoglobin stable. Vital signs are stable. Discharge instructions reviewed. She has follow-up in the office in a week for an incision check.
--- NOTE | 2022-03-20 08:12 | PCM.DC ---
Discharge Instructions Diet Discharge Diet: No restrictions Activity Discharge Activity: May Drive (once you feel strong enough to slam on a brake or turn a steering wheel sharply) and May Shower May resume sexual activity in: 6 weeks Ice area for (Minutes): 15 Weight Bearing Status: Weight bearing as tolerated Lifting Restrictions: nothing heavier than baby Dressing / Incision Call your doctor if your incision/area has: Continuous Slow Oozing, Sudden Increased Bleeding, Increased Pain/ Swelling, Increased Redness, Foul Smelling Discharge and Swelling at the incision site Call your doctor if you observe: Fever of 101 or Higher, Coldness, Increased Pain, Numbness or Tingling, Change in Color, Inability to urinate, Inability to have a bowel movement, Using more than 1 pad per hour, Shortness of breath, Dizziness, Fainting spells, Swelling in the ankles, Chest pain, Increased palpitations (irregular heartbeat), Calf discomfort and Uncontrolled pain Suture Line Care: Avoid Pulling/Pushing and Avoid Pinching/Bending Remove Dressing in: 4 days (remove over the weekend while in the shower. ok to remove earlier if dressing is saturated) Cleanse incision/area with: Soap & Water Follow Up Care Please Follow Up With: Marisol Vivar DO When: 1-2 weeks for incision check 6 weeks for visit Test Results: Test results from this visit will be discussed in further detail at your follow-up appointment, if applicable. Discharge Plan Admission Admit Date/Time: 03/19/22 09:25 Primary Reason for Your Visit: Delivery Attending Provider: Marisol Vivar Primary Care Provider: Care Physician,No Primary Instructions Patient Instructions: C Section Dc Discharge Orders/Prescriptions Prescriptions: New acetaminophen 650 mg/20.3 mL Solution 650 mg PO Q6H PRN (Reason: pain) Qty: 609 RF: 0 polyethylene glycol 3350 [Miralax] 17 gram/dose powder 17 g PO DAILY PRN (Reason: constipation) Qty: 119 RF: 0 Continued PNV comb no.58-iron bisgly-FA 10-400 mg-mcg Capsule PO RF: 0 Referrals / Follow Up: Care Physician,No Primary [Primary Care Provider] - Disposition Disposition (needs filled in before D/C Order can be placed): Home, Self Care
[2022-03-20 08:20] VITALS: BP 98/51; PULSE 69; RESP 18; TEMP 36.6; O2SAT 98
[2022-03-20] MEDS: 0.9% Saline Lock 10 ML Syringe IV (10:33)
[2022-03-20 11:05] VITALS: BP 113/59; PULSE 63; RESP 16; TEMP 36.3; O2SAT 98
--- NOTE | 2022-03-20 12:55 | NURSING ---
Pt called [facility] OB office, 2 week follow up appointment scheduled.
--- NOTE | 2022-03-20 13:10 | NURSING ---
Discussed pt plan of care, okay for pt to be discharged from a social work standpoint.
--- NOTE | 2022-03-20 14:00 | NURSING ---
Train Operations Supervisor in room speaking with FOB about certificate. FOB to take certificate paper to health department within next 10 days along with photo ID to get the certificate finalized.
== END 2022-03-20 15:00 | disposition home or self-care (01) | DRG 539 ==
PROVIDERS: Admitting Provider Obstetrics & Gynecology; Referring Provider Obstetrics & Gynecology; Visit Provider Obstetrics & Gynecology
PROC: 10D00Z1 Extraction of Products of Conception, Low, Open Approach (ICD-10-PCS; CPT 59514; principal; 2022-03-19 11:45)
DX: O34.211 Maternal care for low transverse scar from previous cesarean delivery (principal); Z30.2 Encounter for sterilization; Z37.0 Single live birth; Z3A.39 39 weeks gestation of pregnancy; Z86.14 Personal history of Methicillin resistant Staphylococcus aureus infection
CPT/HCPCS: 59050; 85025; 85027; 86850; 86900; 86901; 87426; 88302; 99218; 99251; J7120; A4216; G0378; G0463; J2405